=== PATIENT | female | born 1940 | race Caucasian/White ===

== ENCOUNTER 2018-02-06 23:10 | Emergency (ER) | payer OTHER ==
[~2018-02-06] VITALS: Ht 154.9 cm; Wt 76.2 kg
[~2018-02-06 23:10] MED LIST: AMBIEN 10 MG TA10 MG PO; ASPIRIN EC81 M1 PO; CARVEDILOL12.5 MG PO; FISH OIL 1,0001 EAC6; GLUCOPHAGE500 MG; HYDROCHLOROTHIA25 M2 PO; IRON; MAG DELAY64 MG PO; NAPROSYN500 MG PO; OMEPRAZOLE20 M2 PO; TIROSINT100 MCG PO; VICODIN 5-5001 EACH PO; ZOCOR40 MG PO
[2018-02-06 23:25] VITALS: BP 144/68
== END 2018-02-07 00:50 | disposition home or self-care (01) ==
LOC: ER 23:10
DX: S01.01XA Laceration without foreign body of scalp, initial encounter (principal); K21.9 Gastro-esophageal reflux disease without esophagitis; E11.9 Type 2 diabetes mellitus without complications; Z90.710 Acquired absence of both cervix and uterus; Z96.653 Presence of artificial knee joint, bilateral; Z95.0 Presence of cardiac pacemaker; Z88.8 Allergy status to other drugs, medicaments and biological substances; Z77.22 Contact with and (suspected) exposure to environmental tobacco smoke (acute) (chronic); W18.39XA Other fall on same level, initial encounter; Y92.89 Other specified places as the place of occurrence of the external cause; Y93.89 Activity, other specified; Y99.8 Other external cause status

== ENCOUNTER 2018-02-15 10:04 | Emergency (ER) | payer OTHER ==
[~2018-02-15] VITALS: Ht 152.4 cm; Wt 76.7 kg
[2018-02-15 10:47] VITALS: BP 140/64
== END 2018-02-15 10:25 | disposition home or self-care (01) ==
LOC: ER 10:04
DX: S01.01XD Laceration without foreign body of scalp, subsequent encounter (principal); K21.9 Gastro-esophageal reflux disease without esophagitis; E11.9 Type 2 diabetes mellitus without complications; Z77.22 Contact with and (suspected) exposure to environmental tobacco smoke (acute) (chronic); Z88.8 Allergy status to other drugs, medicaments and biological substances; Z90.710 Acquired absence of both cervix and uterus; Z96.653 Presence of artificial knee joint, bilateral; W18.39XD Other fall on same level, subsequent encounter

== ENCOUNTER 2020-02-07 19:33 | Emergency (ER) | payer OTHER ==
[~2020-02-07] VITALS: Ht 152.4 cm; Wt 79.8 kg
[2020-02-07] MEDS ORDERED: ULTRAM 50MG TAB50 MG PO (20:15)
[2020-02-07 22:56] VITALS: BP 132/85
== END 2020-02-07 22:56 | disposition home or self-care (01) ==
LOC: ER 19:33
DX: S52.532A Colles' fracture of left radius, initial encounter for closed fracture (principal); E11.9 Type 2 diabetes mellitus without complications; K21.9 Gastro-esophageal reflux disease without esophagitis; Z90.710 Acquired absence of both cervix and uterus; Z79.84 Long term (current) use of oral hypoglycemic drugs; Z79.899 Other long term (current) drug therapy; Z88.8 Allergy status to other drugs, medicaments and biological substances; W18.39XA Other fall on same level, initial encounter; Y93.89 Activity, other specified; Y92.89 Other specified places as the place of occurrence of the external cause; Y99.8 Other external cause status